=== PATIENT | male | born 1990 | race African-American/Black ===

== ENCOUNTER 2019-07-19 07:41 | Emergency (ER) | payer MEDICAID, OTHER ==
[~2019-07-19] VITALS: Ht 175.3 cm; Wt 77.1 kg
[2019-07-19 08:24] LABS: Urine Bacteria NONE SEEN /hpf (None Seen); Urine Blood Negative /uL (Negative); Urine Mucus FEW (None Seen); Urine Specific Gravity 1.028 (1.001-1.035); Urine WBC <1 /hpf (0 - 3)
[2019-07-19 08:45] LABS: Alcohol, Urine < 3.0 mg/dL (0-5); Amphetamine Screen, Urine NEGATIVE (NEGATIVE); Barbiturate Scree,Urine NEGATIVE (NEGATIVE); Benzodiazephine Screen, Urine NEGATIVE (NEGATIVE); Cannabinoid Screen, Urine NEGATIVE (NEGATIVE); Cocaine Screen, Urine NEGATIVE (NEGATIVE); Opiate Scree,Urine NEGATIVE (NEGATIVE); Phencyclidine Screen, Urine NEGATIVE (NEGATIVE)
[2019-07-19 09:09] LABS: Albumin 3.8 g/dL (3.4-5.0); Calcium 8.8 mg/dL (8.5-10.1)
[2019-07-19 09:11] LABS: Salicylate < 1.7 mg/dL (2.8-20.0)
[2019-07-19 09:12] LABS: BUN/Creatinine Ratio 8.3; Bilirubin, Total 0.3 mg/dL (0.2-1.0); Total Protein 7.4 g/dL (6.4-8.2)
[2019-07-19 09:17] LABS: Basophils # (auto) 0.1 uL; Basophils % (auto) 0.8 % (0.0-2.0); Eosinophils # (auto) 0.1 uL; Eosinophils % (auto) 2.2 % (0.0-7.0); Hematocrit 47.3 % (41.0-53.0); Hemoglobin 15.8 g/dL (13.5-17.5); Lymphocytes # (auto) 2.4 uL; Lymphocytes % (auto) 37.1 % (10.0-50.0); Mean Corpuscular Hemoglobin 28.6 pg (28.0-32.0); Mean Corpuscular Hgb Conc. 33.5 g/dL (32.0-36.0); Mean Corpuscular Volume 85.4 fL (80.0-100.0); Monocytes # (auto) 0.6 uL; Monocytes % (auto) 8.4 % (0.0-12.0); Neutrophils # (auto) 3.4 uL; Neutrophils % (auto) 51.5 % (37.0-80.0); Nucleated Red Blood Cells % 0.1 %; Platelet Count (auto) 193 10^3/uL (140-450); Red Blood Cells 5.53 10^6/uL (4.5-5.90); Red Cell Distribution Width 13.6 % (11.8-14.3); White Blood Cell 6.6 10^3/uL (4.4-10.8)
[2019-07-19 09:19] LABS: Acetaminophen < 2.0 ug/mL (10-30)
[2019-07-19 16:25] VITALS: BP 128/70
== END 2019-07-19 16:46 | disposition home or self-care (01) ==
LOC: ER 07:44
DX: F25.9 Schizoaffective disorder, unspecified (principal); F31.9 Bipolar disorder, unspecified; F41.9 Anxiety disorder, unspecified
CPT/HCPCS: 36415; 80053; 80307; 80320; 80329; 81001; 85025

== ENCOUNTER 2020-03-02 11:08 | Emergency (ER) | payer OTHER ==
[~2020-03-02] VITALS: Ht 175.3 cm; Wt 81.6 kg
[2020-03-02 11:22] VITALS: BP 117/82
== END 2020-03-02 12:00 | disposition left against medical advice (07) ==
LOC: ER 11:08
DX: R10.30 Lower abdominal pain, unspecified (principal); Z53.21 Procedure and treatment not carried out due to patient leaving prior to being seen by health care provider

== ENCOUNTER → 2020-03-16 | Emergency (ER) | payer OTHER | END | disposition left against medical advice (07) | LOC: ER 21:43 | DX: N50.819 Testicular pain, unspecified (principal); Z53.21 Procedure and treatment not carried out due to patient leaving prior to being seen by health care provider ==

== ENCOUNTER 2020-03-21 09:28 | Emergency (ER) | payer OTHER ==
[~2020-03-21] VITALS: Ht 152.4 cm; Wt 72.6 kg
[2020-03-21 09:42] VITALS: BP 123/88
== END 2020-03-21 09:45 | disposition left against medical advice (07) ==
LOC: ER 09:28
DX: N50.819 Testicular pain, unspecified (principal); Z53.21 Procedure and treatment not carried out due to patient leaving prior to being seen by health care provider

== ENCOUNTER 2020-04-02 15:11 | Emergency (ER) | payer OTHER ==
[~2020-04-02] VITALS: Ht 175.3 cm; Wt 77.1 kg
[2020-04-02 15:16] VITALS: BP 124/74
[2020-04-02] MEDS ORDERED: SILVER SULFADIAZINE 1 % TOPICAL CREAM 50GM TOP ONE ×3 (15:18→15:30)
[2020-04-02] MEDS ORDERED: LORazepam 0.5 MG TAB ONE (15:19)
[2020-04-02] MEDS ORDERED: LORazepam 0.5 MG TAB PO ONE (15:30)
[2020-04-02] MEDS ORDERED: LORazepam 2MG/ML-1ML VIAL IM ONE (15:30)
== END 2020-04-02 15:35 ==
LOC: ER 15:11 → EDBD 15:11 → ER 15:35
DX: T23.202A Burn of second degree of left hand, unspecified site, initial encounter (principal); T23.201A Burn of second degree of right hand, unspecified site, initial encounter; F41.9 Anxiety disorder, unspecified; F20.9 Schizophrenia, unspecified; X08.8XXA Exposure to other specified smoke, fire and flames, initial encounter; Y93.89 Activity, other specified; Y92.89 Other specified places as the place of occurrence of the external cause; Y99.8 Other external cause status
CPT/HCPCS: 16020